=== PATIENT | female | born 1995 | race Caucasian/White ===

== ENCOUNTER 2023-10-01 14:54 | Outpatient (CLI) | payer MEDICAID, SELFPAY ==
[2023-10-01 15:21] LABS: Basophils % 0.4 % (0.1-2.0); Eosinophils # 0.1 K/mm3 (0.0-0.4); Hematocrit 41.1 % (37.0-47.0); Hemoglobin 13.6 g/dL (12.2-16.2); Lymphocytes # 1.8 K/mm3 (0.7-4.5); Lymphocytes % 23.7 % (10-50); Mean Corpuscular Hemoglobin 34.7 pg (27.0-31.2); Mean Corpuscular Volume 105.2 fl (81-99); Mean Platelet Volume 8.5 fl (7.4-10.4); Monocytes # 0.3 K/mm3 (0.1-1.0); Monocytes % 4.2 % (1.7-9.3); Neutrophils # 5.2 K/mm3 (1.8-7.8); Neutrophils % 70.7 % (37.0-80.0); Platelet Count 218 K/mm3 (142-424); Red Blood Count 3.91 M/mm3 (4.20-5.40); Red Cell Distribution Width 13.7 % (11.5-17.5); White Blood Count 7.4 K/mm3 (4.8-10.8)
[2023-10-01 15:36] LABS: Chloride 107 mmol/L (98-107); Potassium 4.8 mmoL/L (3.5-5.1); Sodium 142 mmol/L (136-145)
[2023-10-01 15:39] LABS: Alanine Aminotransferase 16 U/L (12-78); Albumin Level 4.5 g/dl (3.5-5.0); Albumin/Globulin Ratio 1.6 (1.1-1.8); Alkaline Phosphatase 57 U/L (38-126); Anion Gap 11.8 mEq/L (5-15); Aspartate Amino Transferase 19 U/L (14-36); Bilirubin,Total 0.6 mg/dl (0.2-1.3); Blood Urea Nitrogen 10 mg/dl (7-17); Calcium 9.8 mg/dl (8.4-10.2); Carbon Dioxide 28 mmol/L (22.0-30.0); Estimated Glomerular Filt Rate 85 ml/min (>60); GFR (African American) 103 ML/MIN (>60); Globulin 2.9 g/dL (1.3-3.2); Glucose 96 mg/dl (74-100); Total Protein,Serum 7.4 g/dl (6.3-8.2)
[2023-10-01 15:58] LABS: HCG,Quantitative < 2 mIU/ml (0-5.42)
== END 2023-10-01 23:59 | disposition home or self-care (01) ==
LOC: LAB 14:55
PROVIDERS: PCP Orthopaedic Surgery; Visit Provider Obstetrics & Gynecology
DX: Z01.818 Encounter for other preprocedural examination (principal); N94.6 Dysmenorrhea, unspecified
CPT/HCPCS: 36415; 80053; 84702; 85025

== ENCOUNTER 2023-10-07 07:20 | Day surgery (SDC) | payer MEDICAID, SELFPAY ==
[2023-10-04 08:43] VITALS: BMI 28.8
[2023-10-07] VITALS (10 sets, daily range): BP systolic 102–135; BP diastolic 61–84; PULSE 68–88; RESP 16–18; TEMP 36.2–36.8; O2SAT 97–100
[2023-10-07] MEDS: ACETAMINOPHEN 500MG TAB 1000 MG PO (07:33)
[2023-10-07] MEDS: LACTATED RINGERS 1000ML 1,000 ML 25 ML IV (07:48)
--- NOTE | 2023-10-07 07:56 | EXP.ANES.CKL ---
[facility] Disclaimer: The information contained in this section may have been updated after the patient was seen, as this information can be updated by other users. Medical History History of COVID-19 Endometriosis Anxiety Depression Irritable bowel syndrome (IBS) Request for sterilization Dysmenorrhea No significant past medical history Surgical History H/O ovarian cystectomy S/P removal of ovarian cyst Family History Sister Cancer Father Family history of COPD (chronic obstructive pulmonary disease) Mother Diabetes Mother Hypertension Social History (Updated 10/07/23 @ 07:46 by Breyl Birmingham RN) Smoking Status: Current every day smoker tobacco type: e-cigarettes alcohol intake: never substance use type: denies use current occupational status: employed Travel in the last 8 weeks: None [facility] Anesthesia Checklist Patient Identification Patient Identification: Arm Band Structural Data Admitted From: Home Planned Operative Procedure/s: Laparoscopic Salpingectomy Consent for Planned Operative Procedure(s) Verified: Yes Verified Documents: Surgical Consent and History and Physical NPO Status Verified Time NPO: 00:00 Additional verifications Anesthesia Reactions: No Hx Blood Transfusions: No Blood Transfusion Reaction: No Airway Assessment Mallampati Score:: Class II C-Spine Mobility Assessed: Yes TMJ Mobility Assessed: Yes Dentition: Good Dentition Neurological Assessment Level of Consciousness: Awake, Alert and Appropriate Anesthesia Plan Anesthesia Risk discussed: Yes Anesthesia Plan: Verified ASA Class: II Anesthesia Type: General
[2023-10-07] MEDS: LIDOCAINE 1% 20ML MDV 20 ML (09:53)
--- NOTE | 2023-10-07 10:11 | SUR.OPER ---
Patient reported pain and indicated she wanted a tubal due to the pain. Dr. Dozier had noticed upon the start of surgery no endometriosis and adhesions to the abdominal wall and the right ovary adhered to the abdominal wall. I, Hyacinth REYNA had tried to call momWendy to update consent and the number is a non working number at [phone]. I then had pre op try to locate the mom and she was not found, [phone] I also went out into the lobby to locate the mom and she was not found, [phone]. I then asked summer at 1010 what else we should try and she said we have went all avenues. Dr Dozier did not feel it was clinically indicated to remove her fallopian tubes at this time. The adhered ovary is likely the cause of the pain and no endometriosis was noted.
[2023-10-07] MEDS: MEPERIDINE 25MG/ML 1ML SYRINGE 25 MG IV (10:32)
--- NOTE | 2023-10-07 10:46 | EXP.OP.NOTE ---
Date of procedure: 10/07/23 Pre-op Diagnosis:: 1. Dysmenorrhea 2. Encounter for sterilization Post-op Diagnosis:: 1. Dysmenorrhea 2. Encounter for sterilization Procedure performed:: 1. Diagnostic laparoscopy 2. Lysis of adhesions Surgeon:: Inna Dozier DO Staffing Mgr(s):: N/a EMAIL ADMINISTRATOR:: Tayla Betancourt Anesthesia: GETA Estimated blood loss (mL): 5 Clinical Note:: Ms Yecenia Bob is a 27 yo P1001 who presents to [facility] for scheduled procedure. She complains of painful periods. Periods are regular, monthly but seem to be closer together. Flow lasts 4-6 days with 3 days of intense pain not relieved by NSAIDs. She usually has to use eat and curl up in position. She has tried combined control (OCPs and Depo Provera) in the past but she states hormones make her feel crazy. She has history of dermoid cyst with laparotomy, removal of cyst years ago, before . She states her painful periods started after that surgery. She denies pain with intercourse but admits she does have some pain with tampons. History of 05/07/2019. She is complete with childbearing and desires permanent sterilization. Operative findings:: 1. On bimanual exam, cervix appears grossly normal, uterus normal size and shape, midposition. No adnexal masses palpated 2. On laparoscopic exam, omentum and right ovary adhered to anterior abdominal wall with thin, filmy and dense adhesions between umbilicus and uterus. Lysis of adhesions about 10 minutes. Want adhesions were taken down, uterus, bilateral fallopian tubes and ovaries appeared normal. No evidence of endometriosis, masses or lesions. Operative note:: Risks, benefits and alternatives were discussed with the patient. Risks include but are not limited to bleeding, infection, damage to adjacent structures and VTE. Patient voiced understanding and agreed to proceed with surgery. She was wheeled back to the operating room and placed under general anesthesia without difficulty. She was placed in the dorsal lithotomy position and prepped and draped in normal sterile fashion. A still catheter was inserted into the bladder and draining clear urine prior to the start of the procedure. A bimanual exam was performed. A weighted Auvard was placed in the vaginal vault. A single tooth tenaculum was placed on the anterior lip of the cervix. [place] manipulator was inserted into the cervical canal and attached to the tenaculum. Weighted Auvard was removed from the vagina. Attention was then drawn to the abdomen. A 1.5 cm infraumbilical incision was made. Veress needle was tested and inserted intraabdominally without difficulty. Opening pressure of 4 mm Hg. Abdomen was then insulflated to 15 mm Hg. Trocar was inserted through infraumbilical incision and laparoscope was inserted. Abdomen was viewed in its entirety. See findings above. Omentum adhered to anterior abdominal wall from umbilicus to uterus. Right ovary was adhered to anterior abdominal wall. Adhesions were thin and filmy as well as dense. Pictures were taken. Left lower quadrant was transilluminated. 5 mm incision was made and 5 mm disposable blunt trocar was inserted into the abdomen under direct laparoscopic visualization. Trocar was removed and sleeve was left in place. Right lower quadrant was transilluminated. A 5 mm incision was made and a 5 mm disposable trocar was inserted into the abdomen under direct laparoscopic visualization. Obturator was removed and sleeve was left in place. Ligasure was used to lyse adhesions between anterior abdominal wall and omentum and right ovary, freeing right ovary to sit back in the pelvis. Lysis of adhesions for about 10 minutes. Pelvis was then viewed in it's entirety. No evidence of endometriosis, masses or lesions. Attempted multipe times to contact contact patient's mother, her personal injury litigation paralegal, intraoperatively to ask whether or not to proceed with salpingectomy. She was not in the waiting area and the phone number provided was incorrect. Decision was made to not proceed with salpingectomy. Originally we discussed salpingectomy so she could try [place]. However, there was no evidence of endometriosis in the pelvis. I suspect cause of pain could be intraabdominal adhesions. Left lower quadrant trocar was removed under direct laparoscopic visualization. Right lower quadrant trocar was removed under direct laparoscopic visualization. Pneumoperitoneum was released into the atmosphere. Infraumbilical trocar was removed under direct laparoscopic visualization to ensure no herniation of bowel or omentum. Skin incisions were closed with 2-0 Vicryl. Dermabond was applied over closed skin incisions. All instruments were removed from the vagina. Tenaculum site was noted to be hemostatic. Patient was cleaned and placed into the dorsal supine position. She awoke from anesthesia without difficulty. She was transported to the recovery room in stable condition. She was given instructions for discharge and to follow-up in the office in 2 weeks. Condition: stable Disposition: same day Specimens:: N/a Complications:: None
--- NOTE | 2023-10-07 10:48 | EXP.ANES.I ---
[facility] Anesthesia Record Part I Anesthesia Record I Intake, IV Amount: 750 Hydration: Adequate Estimated blood loss (mL): 10 Urine output (mL): 50 Blood Products used (#): none Blood Pressure: 119/68 SaO2: 98 Pulse Rate: 88 Airway Patency: Patent Respiratory Rate: 16 Temperature: 97.4 F Patient is:: Awake (Talking) and Stable Stable to PACU at:: 10:35
--- NOTE | 2023-10-07 11:23 | EXP.ANES.II ---
[facility] Anesthesia Record Part II Anesthesia Record Part II Discharge Time: 11:00 Destination: Surgical Day Care (OP Surgery) PACU nurse assessment reviewed?: Yes Patient Condition:: Good Anesthesia Complications:: None Swallowing reflex intact?: Yes Airway Patency: Patent Cyanosis?: No Blood Pressure: 102/62 SaO2: 97 Respiratory Rate: 16 Pulse Rate: 86 Temperature: 97.4 F Mental Status: Alert & Oriented Pain level:: 0 Nausea and/or vomitting:: None Intake, IV Amount: 750 Hydration: Adequate
== END 2023-10-07 11:35 | disposition home or self-care (01) ==
PROVIDERS: PCP Family Medicine; Visit Provider Obstetrics & Gynecology
PROC: (CPT 58660; principal; 2023-10-07 09:15)
DX: N94.6 Dysmenorrhea, unspecified (principal)
CPT/HCPCS: 58660; J3490; J1100; J1885; J2175; J2250; J2405; J3010; J7120

== ENCOUNTER 2024-02-27 23:07 | Emergency (ER) | payer MEDICAID, SELFPAY ==
[2024-02-27 23:09] VITALS: BP 123/81; PULSE 90; RESP 14; TEMP 36.6; O2SAT 100; BMI 26.6
--- NOTE | 2024-02-27 23:16 | ED_ITS ---
Discharge Plan Disposition Patient Disposition: Home, Self-Care Condition: Good Prescriptions Prescriptions: No Action quetiapine 50 mg tablet 50 mg PO DAILY Patient Comments: TAKE 1 TO 2 TABLETS BY MOUTH NIGHTLY NEEDED. fluticasone propionate 50 mcg/actuation spray,suspension intranasal Patient Comments: SHAKE LIQUID AND USE 1 SPRAY IN EACH NOSTRIL DAILY Myfembree 40-1-0.5 mg tablet 1 tab PO DAILY Qty: 30 2RF ibuprofen 800 mg tablet 800 mg PO Q8H PRN (Reason: pain) Qty: 20 0RF Referrals Follow up/Referrals: Provider,Referral, MD [Primary Care Provider] - See instructions Activity Restrictions/Add. Instructions Additional Instructions/Restrictions: Please follow-up with your primary care provider and OBGYN. Please return to the emergency department if you develop any new or worsening symptoms or become concerned for your health. Clinical Impressions Clinical Impression: Abdominal pain Instructions Patient Instructions: DI for Urinary Tract Infection (UTI), DI for Urinary Tract Infection in Children Print Language Print Language: Urdu Discharge ED Provider: Clifton Horton General Adult HPI General Chief complaint: Urogenital-Female Stated complaint: vaginal pain, left leg numbness, nausea Time Seen by Provider: 02/27/24 23:16 History of Present Illness HPI narrative: 28-year-old female presents with worsening left lower quadrant pain. She has extensive history of pelvic pain as well as painful menstrual cycles. She reports that the pain started on the day that her menses started, approximately 5 days ago. The pain is primarily left-sided in nature but is sometimes bilateral. She reports it feels like a tugging sensation. She reports it is constant in nature and not improved with Tylenol and ibuprofen at home. She feels like it is worsening and so she presents to the ER. She had a laparoscopy with Dr. Dozier earlier this year which showed no evidence of endometriosis but did have adhesions throughout the pelvis from prior surgery. She reports that she has been having somewhat regular bowel movements for her, once every other day. Normal in texture and quantity. She reports that she did feel like she was having some dysuria couple of days ago but it resolved. She denies any sudden onset in pain. She also reports that her left thigh and foot feel a little abnormal, slightly numb. This started shortly prior to arrival. She also complains of some low back pain that has been ongoing for a long time, not significantly changed tonight. Denies any fevers, prior surgery, IV drug use, weakness, recent trauma etc. Related Data Home Medications ?Medication ?Instructions ?Recorded ?Confirmed quetiapine 50 mg tablet 50 mg PO DAILY 09/03/23 12/05/23 fluticasone propionate 50 intranasal 12/05/23 12/05/23 mcg/actuation nasal spray,suspension Previous Rx's ?Medication ?Instructions ?Recorded ibuprofen 800 mg tablet 800 mg PO Q8H PRN pain #20 tabs 10/07/23 relugolix 40 mg-estradiol 1 1 tab PO DAILY #30 tabs 12/05/23 mg-norethindrone acetate 0.5 mg tablet (Myfembree) Allergies Allergy/AdvReac Type Severity Reaction Status Date / Time No Known Allergies Allergy Verified 12/05/23 10:10 [facility] Disclaimer: The information contained in this section may have been updated after the patient was seen, as this information can be updated by other users. Medical History (Updated 02/28/24 @ 02:07 by Clifton Horton MD) Encounter for assessment of STD exposure Vaginal discharge Endometriosis Anxiety Depression Irritable bowel syndrome (IBS) Dysmenorrhea Surgical History (Updated 12/05/23 @ 10:16 by GARRY Armenta) H/O lysis of adhesions H/O laparoscopy H/O ovarian cystectomy S/P removal of ovarian cyst Family History Sister Cancer ovarian Father Family history of COPD (chronic obstructive pulmonary disease) Mother Diabetes Mother Hypertension Social History Smoking Status: Current every day smoker tobacco type: e-cigarettes alcohol intake: never substance use type: denies use current occupational status: employed Travel in the last 8 weeks: None Have you lived/traveled outside [place] in past 30 days?: No Contact w/someone who lives/traveled outside US past 30 days?: No Exposure to someone with infectious disease in past 14 days?: No Do you have a fever (greater than 100.4 F or 38 C)?: No Have you tested positive for COVID-19: No Exposed to someone with COVID-19 in past 14 days?: No Do you have a sore throat?: No Do you have a cough?: No Do you have any weakness?: No Do you have any diarrhea?: No Are you experiencing any unusual bleeding?: No Do you have any muscle aches/pain?: No Do you have any abdominal pain?: No Are you experiencing loss of taste or smell?: No ROS Obtained: Yes All systems reviewed & no additional complaints except as documented Physical Exam General General appearance: alert and in no apparent distress Head Head exam: atraumatic and normocephalic Eye Eye exam: Present normal appearance, PERRL and EOMI ENT ENT exam: Present normal oropharynx and normal external ear exam Neck Neck exam: Present normal inspection and full ROM Chest Chest inspection: Present normal inspection and symmetric chest wall rise; Absent tenderness Respiratory Respiratory exam: Present normal lung sounds bilaterally; Absent respiratory distress Cardiovascular Cardiovascular exam: Present regular rate and normal rhythm Abdominal Exam Abdominal exam: Present soft; Absent distention, tenderness or guarding Extremities Exam Extremities exam: Present normal inspection; Absent edema or joint swelling Back Exam Back exam: Present normal inspection and sciatic notch tenderness (L); Absent vertebral tenderness Neurological Exam Neurological exam: Present alert and oriented X3; Absent motor sensory deficit Psychiatric Psychiatric exam: Present normal affect and normal mood Skin Skin exam: Present warm, dry and normal color Lymphatic Lymphatic Findings: no adenopathy Medical Decision Making Medical Records Medical records reviewed: Yes I reviewed the patient's medical records. Screening: Per USPSTF and CDC recommendations, given the prevalence of disease in our region, it is our hospital?s policy to screen for HIV and viral Hepatitis for all patients aged 18 and over and those with ongoing risk factors. Douglas Inquiry Pt receiving controlled substance: No Douglas was queried for this patient: No Vital Signs: 02/27/24 23:09 02/27/24 23:45 02/28/24 00:00 Temperature 97.9 F Temperature Source Oral Pulse Rate 70 74 Pulse Rate [Right Radial] 90 Respiratory Rate 14 Blood Pressure 105/68 L Blood Pressure [Right Arm] 123/81 Blood Pressure Mean [Right Arm] 95 Blood Pressure Source Blood Pressure Source [Right Arm] Automatic Cuff Blood Pressure Position Blood Pressure Position [Right Arm] Supine 02 Sat by Pulse Oximetry 100 99 100 Oxygen Delivery Method Room Air 02/28/24 00:16 02/28/24 00:49 02/28/24 01:00 Temperature Temperature Source Pulse Rate 69 78 66 Pulse Rate [Right Radial] Respiratory Rate Blood Pressure 98/72 L 112/70 Blood Pressure [Right Arm] Blood Pressure Mean [Right Arm] Blood Pressure Source Blood Pressure Source [Right Arm] Blood Pressure Position Blood Pressure Position [Right Arm] 02 Sat by Pulse Oximetry 100 98 100 Oxygen Delivery Method 02/28/24 02:13 Temperature 97.9 F Temperature Source Oral Pulse Rate 64 Pulse Rate [Right Radial] Respiratory Rate 14 Blood Pressure 105/62 L Blood Pressure [Right Arm] Blood Pressure Mean [Right Arm] Blood Pressure Source Automatic Cuff Blood Pressure Source [Right Arm] Blood Pressure Position Supine Blood Pressure Position [Right Arm] 02 Sat by Pulse Oximetry Oxygen Delivery Method Room Air Lab Data Lab results reviewed: Yes I reviewed the patient's lab results. Lab Results 02/28/24 00:21: WBC 4.3 L, RBC 3.90 L, Hgb 12.9, Hct 38.7, MCV 99.3 H, MCH 33.1 H, MCHC 33.3, RDW 12.9, Plt Count 245, MPV 8.3, Neut % (Auto) 67.6, Lymph % (Auto) 24.8, [place] % (Auto) 4.8, Eos % (Auto) 1.8, Baso % (Auto) 0.9, Neut # (Auto) 2.9, Lymph # (Auto) 1.1, [place] # (Auto) 0.2, Eos # (Auto) 0.1, Baso # (Auto) 0.0, Sodium 139, Potassium 4.2, Chloride 106, Carbon Dioxide 28, Anion Gap 9.2, BUN 10, Creatinine 0.80, Estimated Creat Clear 114, Estimated GFR 84, Est GFR ( Amer) 102, Glucose 89, Calcium 9.4, Total Bilirubin 0.5, AST 21, ALT 17, Alkaline Phosphatase 48, Total Protein 7.1, Albumin 4.6, Globulin 2.5, Albumin/Globulin Ratio 1.8, Serum HCG, Qual Negative 02/28/24 00:46: Urine Color Yellow, Urine Appearance Clear, Urine pH 7.0, Ur Specific [place] 1.020, Urine Protein Negative, Urine Glucose (UA) Negative, Urine Ketones Negative, Urine Blood 1+ A, Urine Nitrate Negative, Urine Bilirubin Negative, Urine Urobilinogen 0.2, Ur Leukocyte Esterase Negative, Urine RBC 3-5, Urine WBC None, Ur Squamous Epith Cells 3-5, Urine Bacteria Trace, Urine Mucus Trace 02/28/24 00:21 02/28/24 00:21 Orders (Tests/Meds): ED MEDICATIONS Discontinued Medications Generic Name Dose Route Start Last Admin Trade Name Raj PRN Reason Stop Dose Admin Acetaminophen 1,000 mg 02/27/24 23:59 02/28/24 00:25 Acetaminophen 500mg Tab PO 02/28/24 00:00 1,000 mg ONCE ONE Administration Iopamidol 75 ml 02/28/24 01:12 02/28/24 01:13 Iopamidol-370 (76%);100ml Bottle IV 02/28/24 01:13 75 ml ONCE ONE Administration Ketorolac Tromethamine 30 mg 02/27/24 23:59 02/28/24 00:25 Ketorolac 30mg/Ml Vial IV 02/28/24 00:00 30 mg ONCE ONE Administration Sodium Chloride 10 ml 02/28/24 01:12 02/28/24 01:13 Sodium Chloride 0.9% 10ml Syr (Rad Only) IV 03/29/24 01:11 10 ml NEEDED PRN Administration Maintain IV Site ORDERS Category Date Time Status CT abdomen pelvis w con Stat Cat Scan 02/27/24 23:59 Completed CBC w/Auto Diff [Complete Blood Count Auto Diff] Stat Lab 02/27/24 23:59 Completed CMP [Comprehensive Metabolic Panel] Stat Lab 02/27/24 23:59 Completed Serum [HCG Qualitative, Serum] Stat Lab 02/27/24 23:59 Completed Urinalysis and Microscopic Stat Lab 02/28/24 00:46 Completed Medical Decision Narrative: 28-year-old female with history as documented above presents for worsening left lower quadrant pain x 5 days concurrent with menses. History was obtained via interactive discussion with patient, chart review. On arrival, patient is [afebrile, hemodynamically stable, satting appropriately, alert, oriented x4, GCS 15], moving all extremities spontaneously. Full physical exam performed and significant for minimal tenderness in the bilateral lower quadrants. Differential includes but is not limited to pain due to adhesive disease, ovarian cyst, UTI, kidney stone, torsion, colonic pathology. No significant concern for torsion at this time given benign exam, duration of symptoms. Patient was given Tylenol, Toradol for symptomatic management and correction of underlying abnormalities. Workup initiated including CBC CMP test CT abdomen and pelvis with IV contrast. On re-evaluation, patient [remains afebrile, HD stable.] Laboratory workup independently interpreted by me and significant for benign labs without significant abnormality. Urine shows no evidence of infection. Imaging independently interpreted by me and significant for moderate rectal stool burden, otherwise largely unremarkable. See radiology read for full review of final results. Transvaginal ultrasound was considered, but deemed unnecessary due to no significant concern for torsion at this time based on history and exam. Given patient history, exam and workup, patient's presentation most likely represents pelvic pain due to adhesive disease and menstruation. No evidence of emergent pathology at this time. Patient discharged in stable condition with return precautions and instructions to follow-up with Dr. Dozier. Procedures Risk/Benefits of Procedure(s) Were Explained: Yes Critical Care Critical Care Time Critical Care Time: No
[2024-02-27 23:45] VITALS: PULSE 70; O2SAT 99
--- NOTE | 2024-02-27 23:59 | CT_ITS ---
PROCEDURE INFORMATION: Exam: CT Abdomen And Pelvis With Contrast Exam date and time: 02/28/2024 1:05 AM Age: 28 years old Clinical indication: Abdominal pain; Additional info: Worsening llq pain, HX adhesions, menstruating TECHNIQUE: Imaging protocol: Computed tomography of the abdomen and pelvis with contrast. Radiation optimization: All CT scans at this facility use at least one of these dose optimization techniques: automated exposure control; mA and/or kV adjustment per patient size (includes targeted exams where dose is matched to clinical indication); or iterative reconstruction. Contrast material: ISOVUE; Contrast volume: 75 ml; Contrast route: IV; COMPARISON: No relevant prior studies available. FINDINGS: Liver: Normal. No mass. Gallbladder and biliary ducts: Normal. No calcified stones. No ductal dilation. Pancreas: Normal. No ductal dilation. Spleen: Normal. No splenomegaly. Adrenal glands: Normal. No mass. Kidneys and ureters: Normal. No hydronephrosis. Stomach and bowel: Unremarkable. No obstruction. No mucosal thickening. Appendix: No evidence of appendicitis. Intraperitoneal space: Unremarkable. No free air. No significant fluid collection. Vasculature: Unremarkable. No abdominal aortic aneurysm. Lymph nodes: Unremarkable. No enlarged lymph nodes. Urinary bladder: Unremarkable as visualized. Reproductive: Unremarkable as visualized. Bones/joints: Unremarkable. No acute fracture. Soft tissues: Unremarkable. IMPRESSION: No acute findings.
[2024-02-28] VITALS: BP 105/68; PULSE 74; O2SAT 100
[2024-02-28 00:16] VITALS: PULSE 69; O2SAT 100
[2024-02-28] MEDS: KETOROLAC 30MG/ML VIAL 30 MG IV (00:25)
[2024-02-28] MEDS: ACETAMINOPHEN 500MG TAB 1000 MG PO (00:25)
[2024-02-28 00:35] LABS: Basophils % 0.9 % (0.1-2.0); Eosinophils # 0.1 K/mm3 (0.0-0.4); Eosinophils % 1.8 % (0.1-12.0); Hematocrit 38.7 % (37.0-47.0); Hemoglobin 12.9 g/dL (12.2-16.2); Lymphocytes # 1.1 K/mm3 (0.7-4.5); Lymphocytes % 24.8 % (10-50); Mean Corpuscular HGB Conc 33.3 g/dL (31.8-35.4); Mean Corpuscular Hemoglobin 33.1 pg (27.0-31.2); Mean Corpuscular Volume 99.3 fl (81-99); Mean Platelet Volume 8.3 fl (7.4-10.4); Monocytes # 0.2 K/mm3 (0.1-1.0); Monocytes % 4.8 % (1.7-9.3); Neutrophils # 2.9 K/mm3 (1.8-7.8); Neutrophils % 67.6 % (37.0-80.0); Platelet Count 245 K/mm3 (142-424); Red Cell Distribution Width 12.9 % (11.5-17.5); White Blood Count 4.3 K/mm3 (4.8-10.8)
[2024-02-28 00:45] LABS: Alanine Aminotransferase 17 U/L (12-78); Albumin Level 4.6 g/dl (3.5-5.0); Albumin/Globulin Ratio 1.8 (1.1-1.8); Alkaline Phosphatase 48 U/L (38-126); Anion Gap 9.2 mEq/L (5-15); Aspartate Amino Transferase 21 U/L (14-36); Bilirubin,Total 0.5 mg/dl (0.2-1.3); Blood Urea Nitrogen 10 mg/dl (7-17); Calcium 9.4 mg/dl (8.4-10.2); Carbon Dioxide 28 mmol/L (22.0-30.0); Chloride 106 mmol/L (98-107); Creatinine Clearance Estimated 114 mL/min (50-200); Estimated Glomerular Filt Rate 84 ml/min (>60); GFR (African American) 102 ML/MIN (>60); Globulin 2.5 g/dL (1.3-3.2); Glucose 89 mg/dl (74-100); Potassium 4.2 mmoL/L (3.5-5.1); Sodium 139 mmol/L (136-145); Total Protein,Serum 7.1 g/dl (6.3-8.2)
[2024-02-28 00:49] VITALS: BP 98/72; PULSE 78; O2SAT 98
[2024-02-28 00:52] LABS: HCG Qualitative, Serum Negative (Negative)
[2024-02-28 00:53] LABS: Microscopic, Urine URINE MICROSCOPIC (MICROSCOPIC)
[2024-02-28 00:54] LABS: Appearance,Urine CLEAR (Clear); Bilirubin,Urine Negative (Negative); Blood, Urine 1+ (Negative); Color,Urine YELLOW (Yellow); Glucose,Urine (UA) Negative (Negative); Ketones,Urine Negative (Negative); Leukocyte Esterase,Urine Negative (Negative); Nitrate,Urine Negative (Negative); Protein,Urine Negative (Negative); Urobilinogen,Urine 0.2 EU/dl (0.2)
[2024-02-28 01:00] VITALS: BP 112/70; PULSE 66; O2SAT 100
[2024-02-28 01:04] LABS: Bacteria,Urine Trace /lpf; Mucus,Urine Trace /lpf
[2024-02-28] MEDS: IOPAMIDOL-370 (76%);100ML BOTTLE 75 ML IV (01:13)
[2024-02-28] MEDS: SODIUM CHLORIDE 0.9% 10ML SYR (RAD ONLY) 10 ML IV (01:13)
[2024-02-28 02:13] VITALS: BP 105/62; PULSE 64; RESP 14; TEMP 36.6; O2SAT 98
--- NOTE | 2024-02-28 02:15 | PC.NURSE ---
Iv removed. Catheter intact. Bleeding controlled.
== END 2024-02-28 02:15 | disposition home or self-care (01) ==
PROVIDERS: Emergency Provider Emergency Medicine
DX: R10.32 Left lower quadrant pain (principal); R30.0 Dysuria; R20.2 Paresthesia of skin; M54.50 Low back pain, unspecified
CPT/HCPCS: 74177; 80053; 81001; 84703; 85025; 96374; 99285; J1885; Q9967